=== PATIENT | male | born 1975 | race Two or more races ===

== ENCOUNTER 2021-03-20 10:48 | Emergency (ER) | payer MEDICAID ==
[~2021-03-20] VITALS: Ht 180.3 cm; Wt 120.0 kg
[2021-03-20] MEDS ORDERED: METHYLPREDNISOLONE SOD SUCC 125 MG/2 ML VIAL IM STA (14:53)
[2021-03-20] MEDS ORDERED: ALBUTEROL (0.083%) 2.5MG/3ML NEB HHN STA (14:53)
[2021-03-20] MEDS ORDERED: IPRATROPIUM BROMIDE (0.02%) 0.5MG/2.5ML NEB HHN STA (14:53)
[2021-03-20] MEDS ORDERED: IBUPROFEN 600MG TABLET PO STA (16:03)
[2021-03-20] MEDS ORDERED: ALBU18HF2 IH (16:25)
[2021-03-20] MEDS ORDERED: NAPR-681 PO (16:25)
[2021-03-20] MEDS ORDERED: P20 PO (16:25)
[2021-03-20 16:58] VITALS: BP 137/84
== END 2021-03-20 16:59 | disposition home or self-care (01) ==
LOC: ER 11:12
DX: J45.909 Unspecified asthma, uncomplicated (principal); J20.9 Acute bronchitis, unspecified; I10 Essential (primary) hypertension; Z79.899 Other long term (current) drug therapy; Z20.822 Contact with and (suspected) exposure to COVID-19
CPT/HCPCS: 71045; 87426; 94640; 96372; 99284; J2930; Z7610

== ENCOUNTER 2024-05-21 19:01 | Emergency (ER) | payer MEDICAID ==
[~2024-05-21] VITALS: Ht 188 cm; Wt 123.3 kg
[~2024-05-21 19:01] MED LIST: ALBU18HF2 IH; NAPR-681 PO; P20 PO
[2024-05-21 21:30] LABS: EOSINOPHILS % 0.1 % (0.0-5.0); HEMATOCRIT. 48.8 % (42.0-52.0); HEMOGLOBIN. 16.7 g/dL (14.0-18.0); LYMPHOCYTES % 19.3 % (20.0-50.0); MEAN CORPUSCULAR HEMOGLOBIN 31.7 pg (28.0-32.0); MEAN CORPUSCULAR HGB CONC 34.2 g/dL (31.0-37.0); MEAN CORPUSCULAR VOLUME 92.7 fL (80.0-94.0); MEAN PLATELET VOLUME 8.2 fl (7.4-10.4); MONOCYTES % 12.9 % (2.0-8.0); NEUTROPHILS % 66.7 % (40.0-76.0); PLATELET 236 x1000/uL (130-400); RED BLOOD CELL COUNT 5.26 mill/uL (4.7-6.1); RED CELL DISTRIBUTION WIDTH 14.3 % (11.6-14.6)
[2024-05-21 21:34] LABS: CHLORIDE 100 mEq/L (98-107); POTASSIUM 3.8 mEq/L (3.5-5.1); SODIUM 135 mEq/L (136-145)
[2024-05-21 21:35] LABS: CALCIUM 9.4 mg/dL (8.7-10.4); CARBON DIOXIDE 27 mEq/L (21-32)
[2024-05-21 21:40] LABS: CREATININE 1.2 mg/dL (0.6-1.3); GLUCOSE 89 mg/dL (70-105); UREA NITROGEN BLOOD 14 mg/dL (9-23)
[2024-05-21 21:41] LABS: TROPONIN I HIGH SENSITIVITY 29 ng/L (3.0-53)
[2024-05-21 21:44] LABS: PARTIAL THROMBOPLASTIN TIME 42.5 sec (23.4-31.0); PROTHROMBIN TIME 11.6 sec (9.6-11.0)
[2024-05-21 22:45] VITALS: PULSE 70; RESP 18; O2SAT 99
[2024-05-21] MEDS: IPRATROPIUM/ALBUTEROL 0.5-3(2.5)MG/3ML NEB HHN ONE (22:45)
[2024-05-21] MEDS: PREDNISONE 20MG TABLET PO ONE (23:00)
[2024-05-21] MEDS: KETOROLAC 30MG/ML VIAL IM ONE (23:49)
[2024-05-22 00:30] VITALS: PULSE 86; RESP 18; O2SAT 99
[2024-05-22] MEDS: IPRATROPIUM/ALBUTEROL 0.5-3(2.5)MG/3ML NEB HHN ONE (00:30)
[2024-05-22] MEDS ORDERED: P50 MT (01:11)
[2024-05-22] MEDS ORDERED: GUAI237L83 MT (01:11)
[2024-05-22] MEDS ORDERED: METH-653 MT (01:11)
[2024-05-22] MEDS ORDERED: AMOX1TAB16 MT (01:11)
[2024-05-22] MEDS ORDERED: ALBU18HF2 IH (01:11)
[2024-05-22] MEDS: METHOCARBAMOL 500MG TABLET PO ONE (01:48)
[2024-05-22 02:02] VITALS: BP 129/96; PULSE 73; RESP 18; TEMP 36.61404; O2SAT 96
== END 2024-05-22 02:05 | disposition home or self-care (01) ==
LOC: ER 19:01
DX: J20.9 Acute bronchitis, unspecified (principal); R51.9 Headache, unspecified; I11.0 Hypertensive heart disease with heart failure; I50.9 Heart failure, unspecified; E11.9 Type 2 diabetes mellitus without complications; I48.91 Unspecified atrial fibrillation; J44.0 Chronic obstructive pulmonary disease with (acute) lower respiratory infection; Z79.52 Long term (current) use of systemic steroids
CPT/HCPCS: 80048; 85025; 85610; 85730; 84484; 36415; 71045; 94664; 93005; 94070; 98960; 96372; 99285; 94640; J7512; J1885; Z7610 ×3